=== PATIENT | female | born 1935 | race American Indian/Alaskan Native ===

== ENCOUNTER 2017-09-03 17:16 | Emergency (ER) | payer OTHER, MEDICARE ==
[~2017-09-03] VITALS: Ht 165.1 cm; Wt 61.2 kg
[~2017-09-03 17:16] MED LIST: ATELVIA35 MG; CALCAVITDA; CONEST.625; DIGO.125; DOXE0.5; ELIQUIS5 MG PO; MECL25 PO; METO25ER; RAMI1.25; Vibramycin50 MG PO; WARF3
[2017-09-03] MEDS ORDERED: RAMI2.5 (18:07)
[2017-09-03] MEDS ORDERED: RAYALDEE30 MCG (18:07)
[2017-09-03] MEDS ORDERED: DOXE0.5 (18:07)
[2017-09-03] MEDS ORDERED: METO50ER PO (18:08)
[2017-09-03 18:35] LABS: BASOPHILS ABSOLUTE AUTO 0.04 K/mm3 (0.00-0.23); BASOPHILS PERCENT AUTO 1 % (0-2); EOSINOPHILS ABSOLUTE AUTO 0.15 K/mm3 (0.00-0.68); EOSINOPHILS PERCENT AUTO 3 % (0-6); Hematocrit 38.8 % (33.0-51.0); Hemoglobin 12.5 g/dL (11.5-16.0); IMMATURE GRAN ABSOLUTE AUTO 0.01 K/mm3 (0.00-0.10); IMMATURE GRAN PERCENT AUTO 0 % (0-1); LYMPHOCYTES ABSOLUTE AUTO 2.52 K/mm3 (0.84-5.20); LYMPHOCYTES PERCENT AUTO 44 % (21-46); MONOCYTES ABSOLUTE AUTO 0.48 K/mm3 (0.16-1.47); MONOCYTES PERCENT AUTO 8 % (4-13); Mean Corpuscular HGB 27.3 pg (26.0-34.0); Mean Corpuscular HGB Conc 32.2 g/dL (31.5-36.5); Mean Corpuscular Volume 85 fL (80-100); Mean Platelet Volume 9.6 fL (9.1-12.4); NEUTROPHILS ABSOLUTE AUTO 2.54 K/mm3 (1.96-9.15); NEUTROPHILS PERCENT AUTO 44 % (41-73); Platelet Count 220 K/mm3 (150-400); RDW Coefficient Variation 13.3 % (11.7-14.2); RDW Standard Deviation 41.2 fL (35.1-46.3); Red Blood Cell Count 4.58 M/mm3 (3.80-5.20); White Blood Cell Count 5.74 K/mm3 (4.00-11.30)
[2017-09-03 19:03] LABS: Alanine Aminotransfer (ALT/SGP 20 U/L (12-78); Albumin, Blood 3.5 g/dL (3.4-5.0); Albumin/Globulin Ratio 1.1 (0.8-1.8); Alk Phos 75 U/L (50-136); Anion Gap 9 mmol/L (6-16); Aspartate Aminotrans (AST/SGOT 24 U/L (12-37); Bilirubin, Total 0.3 mg/dL (0.1-1.0); Blood Urea Nitrogen 22 mg/dL (8-24); Bun/Creatinine Ratio 22.2 (12.0-20.0); CO2, Blood 25 mmol/L (21-32); Calcium, Blood 8.9 mg/dL (8.5-10.1); Chloride, Blood 107 mmol/L (98-108); Creatinine, Blood 0.99 mg/dL (0.40-1.00); Globulin, Blood 3.3 g/dL (2.2-4.0); Glomerular Filtration Rate 57 (60-); Glucose, Blood 111 mg/dL (70-99); Magnesium, Blood 2.1 mg/dL (1.6-2.4); Potassium, Blood 3.9 mmol/L (3.5-5.5); Sodium, Blood 141 mmol/L (136-145); Total Protein, Blood 6.8 g/dL (6.4-8.2); Troponin I <0.015 ng/mL (0.000-0.040)
== END 2017-09-03 20:01 | disposition home or self-care (01) ==
LOC: ER 17:16
PROVIDERS: Emergency Medicine
DX: I48.0 Paroxysmal atrial fibrillation (principal); I10 Essential (primary) hypertension; Z79.899 Other long term (current) drug therapy; Z79.01 Long term (current) use of anticoagulants
CPT/HCPCS: 36415; 71046; 80053; 83735; 84484; 85025; 93005; 93010; 96374; 99284; J7030

== ENCOUNTER → 2019-05-09 | Outpatient (CLI) | payer OTHER, MEDICARE ==
[~2019-05-09] MED LIST changes: +METO50ER PO; +RAMI2.5; +RAYALDEE30 MCG
== END | disposition home or self-care (01) ==
LOC: LAB SHORT 07:58 → PLD 07:58
DX: L57.0 Actinic keratosis (principal)
CPT/HCPCS: 88305

== ENCOUNTER → 2019-05-29 | Outpatient (CLI) | payer OTHER, MEDICARE | END | disposition home or self-care (01) | LOC: LAB 07:55 → LAB SHORT 07:55 | DX: J40 Bronchitis, not specified as acute or chronic (principal) | CPT/HCPCS: 87015; 87116; 87206 ==

== ENCOUNTER → 2019-05-30 | Outpatient (CLI) | payer OTHER, MEDICARE | END | disposition home or self-care (01) | LOC: LAB 09:21 → LAB SHORT 09:21 | DX: J40 Bronchitis, not specified as acute or chronic (principal) | CPT/HCPCS: 87015; 87116; 87206 ==

== ENCOUNTER → 2019-05-31 | Outpatient (CLI) | payer OTHER, MEDICARE | END | disposition home or self-care (01) | LOC: LAB 07:52 → LAB SHORT 07:52 → LAB FUT 05-22 11:15 | DX: J40 Bronchitis, not specified as acute or chronic (principal) | CPT/HCPCS: 87015; 87116; 87206 ==

== ENCOUNTER 2022-02-04 07:16 | Day surgery (SDC) | payer OTHER, MEDICARE ==
[~2022-02-04] VITALS: Ht 165.1 cm; Wt 59.0 kg
--- NOTE | 2022-02-04 12:05 | NUR ---
Dr Bonilla here to speak to patient about discharge instruction
--- NOTE | 2022-02-04 13:00 | NUR ---
patient sitting up in bed eating lunch.
--- NOTE | 2022-02-04 13:45 | NUR ---
PACER SITE SOFT AND NONTENDER. NO HEMATOMA NO BLEEDING. ICE PACK IN PLACE. PATIENT VERABLIZED UNDERSTANDING OF DISCHARGE INASTRUCTIONS AND PRECAUTIONS. NO FURTHER QUESTIONS. IV SITE DCED WITH CATHETER INTACT. PATIENT DISCHARGED VIA WHEEL CHAIR WITH BELONGING AND PACEMAKER REMOTE MONITOR AND ICE PACK.
== END 2022-02-04 16:39 | disposition home or self-care (01) ==
LOC: MHTC 07:16
DX: Z45.010 Encounter for checking and testing of cardiac pacemaker pulse generator [battery] (principal); I48.0 Paroxysmal atrial fibrillation; I13.0 Hypertensive heart and chronic kidney disease with heart failure and stage 1 through stage 4 chronic kidney disease, or unspecified chronic kidney disease; I50.30 Unspecified diastolic (congestive) heart failure; N18.9 Chronic kidney disease, unspecified; Z79.01 Long term (current) use of anticoagulants; Z79.899 Other long term (current) drug therapy
CPT/HCPCS: 33228; 99152; 99153; C1785; J0690; J1644; J2250; J3010; J7030; J7040

== ENCOUNTER → 2022-03-30 | Outpatient (CLI) | payer OTHER, MEDICARE | LOC: PLD 08:18 → LAB SHORT 08:18 | DX: D48.5 Neoplasm of uncertain behavior of skin (principal) | CPT/HCPCS: 88305 ==

== ENCOUNTER → 2022-09-16 | Outpatient (CLI) | payer OTHER, MEDICARE | END | disposition home or self-care (01) | LOC: LAB SHORT 15:09 → PLD 15:09 | DX: D48.5 Neoplasm of uncertain behavior of skin (principal); C44.622 Squamous cell carcinoma of skin of right upper limb, including shoulder | CPT/HCPCS: 88305 ==